=== PATIENT | female | born 1960 | race Caucasian/White ===

== ENCOUNTER 2024-06-22 08:35 | Emergency (ER) | payer OTHER ==
[2024-06-22 09:27] VITALS: BMI 22.2
[2024-06-22] MEDS ORDERED: ACETAMINOPHEN INJECTION 100 ML ONE (09:48)
[2024-06-22] MEDS ORDERED: FAMOTIDINE 20 MG/50 ML IVPB 20 MG/50 ML MG IVPB ONE (09:48)
[2024-06-22] MEDS ORDERED: ONDANSETRON 4 MG/2 ML VIAL ONE ×2 (09:48→11:39)
[2024-06-22] MEDS: FAMOTIDINE 20 MG/50 ML IVPB 20 MG/50 ML MG IVPB ONE (10:11)
[2024-06-22] MEDS: ACETAMINOPHEN 1000 MG/100 ML BAG IVPB ONE (10:11)
[2024-06-22] MEDS: ONDANSETRON 4 MG/2 ML VIAL IVPUSH ONE ×2 (10:12→11:45)
[2024-06-22] MEDS: LACTATED RINGERS SOLUTION 1000 ML INFUS.BAG IV ONE ×2 (10:12→12:03)
[2024-06-22 10:44] LABS: HEMATOCRIT 38.9 % (32.4-45.2); HEMOGLOBIN 12.8 GM/dL (10.7-15.3); MCH 28.2 pg (25.7-33.7); MCHC 32.8 g/dl (32.0-36.0); MEAN CELL VOLUME 85.8 fl (80-96); MEAN PLT VOLUME 8.1 fl (7.5-11.1); PLATELET COUNT 227 10^3/uL (134-434); RBC 4.54 M/mm3 (3.60-5.2); WHITE BLOOD COUNT 6.8 K/mm3 (4.0-10.0)
[2024-06-22] MEDS: SODIUM CHLORIDE 0.9% 500 ML INFUS.BAG IV ONE (11:13)
[2024-06-22 11:17] LABS: ALBUMIN 3.1 g/dl (3.4-5.0); CALCIUM 8.3 mg/dL (8.5-10.1)
[2024-06-22 11:18] LABS: BLOOD UREA NITROGEN 12.4 mg/dL (7-18); MAGNESIUM 1.8 mg/dL (1.8-2.4)
[2024-06-22 11:21] LABS: CREATININE 0.9 mg/dL (0.55-1.3); TOT PROT 6.8 g/dl (6.4-8.2)
[2024-06-22 11:47] VITALS: RESP 18
[2024-06-22] MEDS ORDERED: IBUPROFEN 400 MG TABLET (FP) PO ONE (12:10)
[2024-06-22] MEDS: IBUPROFEN 400 MG TABLET (FP) PO ONE (12:25)
[2024-06-22 14:22] VITALS: BP 111/58; PULSE 105; TEMP 98.8
== END 2024-06-22 15:02 | disposition home or self-care (01) ==
LOC: JER 08:35
PROC: 3E033GC Introduction of Other Therapeutic Substance into Peripheral Vein, Percutaneous Approach (ICD-10-PCS; principal; 2024-06-22)
PROC: 3E033NZ Introduction of Analgesics, Hypnotics, Sedatives into Peripheral Vein, Percutaneous Approach (ICD-10-PCS; 2024-06-22)
PROC: 3E033GC Introduction of Other Therapeutic Substance into Peripheral Vein, Percutaneous Approach (ICD-10-PCS; 2024-06-22)
PROC: 3E033GC Introduction of Other Therapeutic Substance into Peripheral Vein, Percutaneous Approach (ICD-10-PCS; 2024-06-22)
DX: R11.2 Nausea with vomiting, unspecified (principal); R19.7 Diarrhea, unspecified; R10.13 Epigastric pain; R53.1 Weakness; R00.0 Tachycardia, unspecified; R50.9 Fever, unspecified; Z20.822 Contact with and (suspected) exposure to COVID-19
CPT/HCPCS: 0241U-QW; 36415; 80053; 83690; 83735; 84484; 85025; 93005; 93010; 99284-25; J0131